=== PATIENT | male | born 1985 | race Caucasian/White ===

== ENCOUNTER 2020-05-13 11:54 | Emergency (ER) | payer OTHER ==
[~2020-05-13] VITALS: Ht 180.3 cm; Wt 86.2 kg
== END 2020-05-13 13:42 | disposition home or self-care (01) ==
LOC: ER 11:54
DX: S62.626A Displaced fracture of middle phalanx of right little finger, initial encounter for closed fracture (principal); S62.616A Displaced fracture of proximal phalanx of right little finger, initial encounter for closed fracture; S80.01XA Contusion of right knee, initial encounter; W10.8XXA Fall (on) (from) other stairs and steps, initial encounter; Y93.89 Activity, other specified; Y92.018 Other place in single-family (private) house as the place of occurrence of the external cause; Y99.8 Other external cause status

== ENCOUNTER → 2022-01-10 | Emergency (ER) | payer OTHER ==
[~2022-01-10] VITALS: Ht 182.9 cm; Wt 88.5 kg
== END | disposition left against medical advice (07) ==
LOC: ER 12:26
DX: Z53.21 Procedure and treatment not carried out due to patient leaving prior to being seen by health care provider (principal)